=== PATIENT | female | born 1960 | race Caucasian/White ===

== ENCOUNTER 2022-01-25 16:14 | Emergency (ER) | payer OTHER ==
[~2022-01-25] VITALS: Ht 152.4 cm; Wt 59.0 kg
[2022-01-25] MEDS ORDERED: KETO10TA2 PO (17:56)
== END 2022-01-25 18:08 | disposition home or self-care (01) ==
LOC: ER 16:14
DX: S42.255A Nondisplaced fracture of greater tuberosity of left humerus, initial encounter for closed fracture (principal); X58.XXXA Exposure to other specified factors, initial encounter; Y93.9 Activity, unspecified; Y92.9 Unspecified place or not applicable